=== PATIENT | male | born 1965 | race Caucasian/White ===

== ENCOUNTER 2018-03-22 08:46 | Outpatient (CLI) | payer OTHER ==
[~2018-03-22] VITALS: Ht 177.8 cm; Wt 110.3 kg
[2018-03-22] VITALS (20 sets, daily range): BP systolic 103–150; BP diastolic 75–854; PULSE 58–90; TEMP 97.7
[~2018-03-22 08:46] MED LIST: CENTRUM1 TAB PO; COZAAR 50MG50 MG/TAB PO; GLUCOSAMINE & C1 CA2 PO; GLUCOSAMINE/CHONDROI PO; IBUPROFEN600 MG PO; INSTAFLEX PO; MULTIPLE VITAMI1 CAP PO; TYLENOL 500MG500 MG PO; VITAMIN C500 MG PO; VITAMINC1000TA PO
== END 2018-03-22 17:00 | disposition home or self-care (01) ==
LOC: COL.RAD 08:46
DX: R59.0 Localized enlarged lymph nodes (principal); R91.8 Other nonspecific abnormal finding of lung field
CPT/HCPCS: J2250; J3010